=== PATIENT | male | born 1970 | race Caucasian/White ===

== ENCOUNTER 2021-12-30 07:42 | Outpatient (CLI) | payer OTHER | END 2021-12-30 07:43 | disposition home or self-care (01) | LOC: CSHULT 07:42 | PROVIDERS: ATTEND Nurse Practitioner Family | DX: R74.8 Abnormal levels of other serum enzymes (principal); K76.0 Fatty (change of) liver, not elsewhere classified | CPT/HCPCS: 76705 ==

== ENCOUNTER 2025-03-02 10:03 | Outpatient (CLI) | payer OTHER | END 2025-03-02 10:04 | disposition home or self-care (01) | LOC: CSHSLEEP 10:03 | PROVIDERS: ATTEND Nurse Practitioner Family | DX: G47.33 Obstructive sleep apnea (adult) (pediatric) (principal); R53.83 Other fatigue; R51.9 Headache, unspecified; I25.10 Atherosclerotic heart disease of native coronary artery without angina pectoris | CPT/HCPCS: 95800 ==